=== PATIENT | female | born 2000 | race Caucasian/White ===

== ENCOUNTER → 2022-09-14 | Outpatient (CLI) | payer OTHER, SELFPAY ==
[2022-09-14 17:19] LABS: hCG Titer Quant., Serum < 1 mIU/mL (1-3)
[2022-09-14 17:25] LABS: Estradiol 54.2 pg/mL; Follicle Stimulating Hormone 5.9 mIU/mL; Luteinizing Hormone 11.2 mIU/mL; Prolactin 7.8 ng/mL; T4 Free Direct 1.15 ng/dL (0.76-1.46); Thyroid Stim Hormone (TSH) 2.23 uIU/mL (0.358-3.74)
[2022-09-21 09:08] LABS: Testosterone, % Free 1.93 % (0.50-2.80); Testosterone, Free 1.06 ng/dL (0.10-0.85); Testosterone, Total 55 ng/dL (13-71)
[2022-09-21 18:22] LABS: HPV Reflexed? NOT INDICATED
== END | disposition home or self-care (01) ==
PROVIDERS: Visit Provider Student in an Organized Health Care Education/Training Program
DX: N93.9 Abnormal uterine and vaginal bleeding, unspecified (principal); Z12.4 Encounter for screening for malignant neoplasm of cervix
CPT/HCPCS: 36415; 82627; 82670; 83001; 83002; 84146; 84402; 84403; 84439; 84443; 84702; 88175; 82626; G0145